=== PATIENT | female | born 1995 | race Caucasian/White ===

== ENCOUNTER 2020-11-11 16:08 | Emergency (ER) | payer OTHER, SELFPAY ==
[2020-11-11 16:12] VITALS: BP 129/75; PULSE 69; RESP 16; TEMP 36.6; O2SAT 98; BMI 28.1
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
== END 2020-11-11 18:17 | disposition home or self-care (01) ==
LOC: HO.ED 18:01
PROVIDERS: Emergency Provider Internal Medicine
DX: S70.12XD Contusion of left thigh, subsequent encounter (principal); V43.52XD Car driver injured in collision with other type car in traffic accident, subsequent encounter
CPT/HCPCS: 99282; 99284

== ENCOUNTER → 2020-11-27 14:58 | Outpatient (BNVA) | payer OTHER, SELFPAY | PROVIDERS: Visit Provider Surgery Vascular Surgery ==

== ENCOUNTER 2020-12-15 09:58 | Outpatient (REF) | payer OTHER, SELFPAY ==
--- NOTE | ~2020-12-15 | CT_ITS ---
EXAMINATION: CTA ABDOMEN, PELVIS AND LOWER EXTREMITY RUNOFF WITH CONTRAST CLINICAL INFORMATION: Contusion left thigh. COMPARISON: None TECHNIQUE: Routine abdominal aorta and lower extremity runoff CTA protocol with contrast was performed. 100 mL of Omnipaque 350 was administered. Images were evaluated on independent dedicated 3-D workstation and 3-D images were reconstructed with concurrent radiologist supervision and subsequently interpreted. This CT examination was performed using dose optimization techniques as appropriate, variously including the following: *Automated exposure control *Adjustment of mA and/or kV according to patient size (this includes techniques or standardized protocols for targeted exams where dose is matched to indication/reason for exam; i.e. extremities or head) *Use of iterative reconstruction technique TOTAL DLP: 626 mGy-cm FINDINGS: Vascular: 1. Distal Thoracic aorta:Normal in caliber. 2. Mesenteric Arteries:The celiac axis, superior mesenteric artery and inferior mesenteric artery are patent. 3. Renal Arteries:Patent. 4. Infrarenal Abdominal Aorta:Patent without aneurysm or dissection. 5. Right Lower Extremity Arterial Perfusion: The right common, internal, and external iliac arteries are widely patent. The common femoral, superficial femoral and profundus femoris arteries are widely patent. The popliteal artery is patent and there is a normal three-vessel runoff to the foot. 6. Left Lower Extremity Arterial Perfusion: The left common, internal, and external iliac arteries are widely patent. The common femoral, superficial femoral and profundus femoris arteries are widely patent. The popliteal artery is patent and there is a normal three-vessel runoff to the foot. There is no pseudoaneurysm or contrast extravasation. NONVASCULAR: Lung Bases: The visualized lung bases are unremarkable. Liver, Gallbladder and Biliary Tree: The liver is normal in size, shape, and attenuation. No focal hepatic lesion or biliary ductal dilatation is present. The gallbladder is unremarkable with no evidence of radiopaque gallstones, gallbladder wall thickening, or obvious pericholecystic inflammatory changes. Pancreas: Unremarkable. Spleen: Unremarkable. Adrenal Glands: Unremarkable. Kidneys and Ureters: The kidneys are normal in size, shape, and attenuation. No hydronephrosis, hydroureter, or calculi seen. No perinephric stranding. Bladder: Unremarkable. Gastrointestinal Tract: The small and large bowel are unremarkable. The appendix is unremarkable. Abdominal Wall: No significant hernia is appreciated. Lymph Nodes: Normal. Pelvic Viscera: An intrauterine device is in place. The uterus and adnexa are otherwise unremarkable. Musculoskeletal: Within the posterolateral soft tissues of the left thigh there is a region of increased attenuation within the subcutaneous fat extending over a length of approximately 21 cm and up to 1.3 cm in thickness. This likely corresponds with a contusion noted in the clinical history. There is no associated vascular anomaly. CT/CT angio abd aorta runoff IMPRESSION: Vascular: Unremarkable appearance of the arterial vasculature. There is no vascular anomaly associated with the presumed left thigh contusion. Nonvascular: Contusion limited to the subcutaneous soft tissues of the posterior lateral left thigh.
[2020-12-15] MEDS: iohexoL 350 MG/ML 100 ML INFUS..BTL IV (11:39)
== END 2020-12-15 09:59 | disposition home or self-care (01) ==
LOC: HO.CT 09:58
PROVIDERS: Visit Provider Surgery Vascular Surgery
DX: S70.12XA Contusion of left thigh, initial encounter (principal)
CPT/HCPCS: 75635; Q9967

== ENCOUNTER → 2020-12-18 15:31 | Outpatient (BNVA) | payer OTHER, SELFPAY | PROVIDERS: Visit Provider Surgery Vascular Surgery | DX: S70.12XD Contusion of left thigh, subsequent encounter (principal) | CPT/HCPCS: 10160 ==

== ENCOUNTER → 2021-01-06 15:49 | Outpatient (BNVA) | payer OTHER, SELFPAY | PROVIDERS: Visit Provider Surgery Vascular Surgery | DX: S70.12XD Contusion of left thigh, subsequent encounter (principal) | CPT/HCPCS: 10160 ==

== ENCOUNTER → 2021-02-19 15:21 | Outpatient (BNVA) | payer OTHER, SELFPAY | PROVIDERS: Visit Provider Surgery Vascular Surgery | DX: S70.12XD Contusion of left thigh, subsequent encounter (principal) | CPT/HCPCS: 10160 ==

== ENCOUNTER → 2021-04-02 15:35 | Outpatient (BNVA) | payer OTHER, SELFPAY | PROVIDERS: PCP Internal Medicine; Visit Provider Surgery Vascular Surgery ==

== ENCOUNTER → 2021-06-19 11:33 | Outpatient (BNVA) | payer OTHER, SELFPAY | PROVIDERS: PCP Internal Medicine; Visit Provider Surgery Vascular Surgery | DX: Z13.89 Encounter for screening for other disorder (principal) ==

== ENCOUNTER 2021-12-07 07:27 | Outpatient (REF) | payer OTHER, SELFPAY ==
--- NOTE | ~2021-12-07 | CT_ITS ---
EXAMINATION: CT FEMUR WITHOUT AND WITH CONTRAST, LEFT CT LOWER LEG WITHOUT AND WITH CONTRAST, LEFT CLINICAL INFORMATION: Left thigh contusion. Traumatic secondary and recurrent hemorrhage. COMPARISON: CTA runoff dated 12/15/2020. TECHNIQUE: Axial CT images of the left femur and left lower leg were obtained before and after the IV administration of 85 mL Omnipaque 350 contrast. Sagittal and coronal reformats were provided and reviewed. This CT examination was performed using dose optimization techniques as appropriate, variously including the following: *Automated exposure control *Adjustment of mA and/or kV according to patient size (this includes techniques or standardized protocols for targeted exams where dose is matched to indication/reason for exam; i.e. extremities or head) *Use of iterative reconstruction technique. DOSE: 1259 mGy-cm. FINDINGS: Within the lateral subcutaneous tissues there is an ellipsoid, slightly complex fluid collection measuring 1.8 x 6.0 x 6.9 cm. There is adjacent linear stranding and edema. Findings have decreased in prominence when compared to the CT dated 12/15/2020. The visualized vascular structures are unremarkable. No active extravasation of contrast on precontrast or postcontrast imaging. The collection measures 4 Hounsfield units on precontrast imaging and 3.4 Hounsfield units on postcontrast imaging, excluding active extravasation of contrast into the collection. No additional soft tissue mass or fluid collection. The visualized flexor and extensor muscles and tendons are grossly intact; however, evaluation is limited on CT examination. No acute osseous abnormality. No fracture or dislocation. No concerning lytic or blastic osseous lesion. CT/CT lower leg LT wo/w IV con IMPRESSION: Redemonstration of a peripheral subcutaneous fluid collection along the posterolateral aspect of the left thigh, decreased in size when compared to the CT dated 12/15/2020. No active extravasation of contrast into the collection or postcontrast change in Hounsfield units to suggest active bleeding. The visualized vascular structures are unremarkable without active extravasation of contrast.
[2021-12-07] MEDS: iohexoL 350 MG/ML 100 ML INFUS..BTL IV (08:04)
== END 2021-12-07 07:28 | disposition home or self-care (01) ==
LOC: HO.CT 07:27
PROVIDERS: Visit Provider Surgery Vascular Surgery
DX: S70.12XA Contusion of left thigh, initial encounter (principal); R58 Hemorrhage, not elsewhere classified; X58.XXXA Exposure to other specified factors, initial encounter; Y93.9 Activity, unspecified; Y92.9 Unspecified place or not applicable; Y99.9 Unspecified external cause status
CPT/HCPCS: 73202; 73702; Q9967

== ENCOUNTER → 2021-12-25 12:02 | Outpatient (BNVA) | payer OTHER, SELFPAY | PROVIDERS: PCP Internal Medicine; Visit Provider Surgery Vascular Surgery | DX: R22.42 Localized swelling, mass and lump, left lower limb (principal) | CPT/HCPCS: 10160 ==

== ENCOUNTER → 2022-09-06 10:24 | Outpatient (BNVA) | payer OTHER, SELFPAY | PROVIDERS: PCP Internal Medicine; Visit Provider Surgery Vascular Surgery ==

== ENCOUNTER 2022-10-19 12:54 | Outpatient (REF) | payer OTHER, SELFPAY ==
--- NOTE | ~2022-10-19 | CT_ITS ---
EXAMINATION: CT FEMUR WITHOUT CONTRAST, LEFT CLINICAL INFORMATION: Left thigh contusion. Re-evaluate left posterior thigh seroma. COMPARISON: Most recent left femur CT dated 12/07/2021. TECHNIQUE: Contiguous axial CT images of the left femur were obtained without contrast. Sagittal and coronal reformats were provided and reviewed. This CT examination was performed using dose optimization techniques as appropriate, variously including the following: *Automated exposure control *Adjustment of mA and/or kV according to patient size (this includes techniques or standardized protocols for targeted exams where dose is matched to indication/reason for exam; i.e. extremities or head) *Use of iterative reconstruction technique. DOSE: 465 mGy-cm. FINDINGS: Redemonstration of an ellipsoid subcutaneous focus measuring approximately 1.1 x 5.7 x 6.5 cm, decreased in prominence when compared to the prior examination. Adjacent linear stranding is redemonstrated. Findings are consistent with an evolving hematoma/seroma. No new soft tissue mass or fluid collection. The visualized muscles and tendons are grossly intact however, evaluation is limited on CT examination. The visualized intrapelvic structures are grossly unremarkable. No acute fracture or dislocation. No concerning lytic or blastic osseous lesion. No evidence of avascular necrosis. No joint space narrowing or marginal osteophytes. CT/CT femur LT wo IV con IMPRESSION: 1. Redemonstration of an ellipsoid subcutaneous focus, decreased in prominence when compared to the prior examination. Findings are consistent with an evolving hematoma/seroma. 2. No new soft tissue mass or fluid collection.
== END 2022-10-19 12:55 | disposition home or self-care (01) ==
LOC: HO.CT 12:54
PROVIDERS: PCP Internal Medicine; Visit Provider Surgery Vascular Surgery
DX: S70.12XA Contusion of left thigh, initial encounter (principal)
CPT/HCPCS: 73700